=== PATIENT | male | born 1965 | race Asian ===

== ENCOUNTER 2023-10-09 14:04 | Emergency (ER) | payer MEDICAID ==
[~2023-10-09] VITALS: Ht 162.6 cm; Wt 91.0 kg
[2023-10-09 14:21] VITALS: O2SAT 97
[2023-10-09] MEDS ORDERED: NAPR-681 MT (19:19)
[2023-10-09] MEDS ORDERED: CYCL5TAB MT (19:19)
[2023-10-09 19:24] VITALS: BP 136/78; PULSE 107; RESP 16; TEMP 98.6
== END 2023-10-09 19:30 | disposition home or self-care (01) ==
LOC: ER 14:04
DX: M54.2 Cervicalgia (principal); E78.00 Pure hypercholesterolemia, unspecified; V49.9XXA Car occupant (driver) (passenger) injured in unspecified traffic accident, initial encounter; Y93.89 Activity, other specified; Y92.89 Other specified places as the place of occurrence of the external cause; Y99.8 Other external cause status
CPT/HCPCS: 72040; 73030; 99284